=== PATIENT | male | born 1980 | race African-American/Black ===

== ENCOUNTER 2017-09-30 11:07 | Emergency (ER) | payer SELFPAY ==
[~2017-09-30] VITALS: Ht 190.5 cm; Wt 100.0 kg
[2017-09-30 11:10] VITALS: BP 140/71; PULSE 73; RESP 15; TEMP 98.4; O2SAT 98
[2017-09-30] MEDS ORDERED: AMOX500C PO (11:45)
[2017-09-30] MEDS ORDERED: PERI0.126 SWISH-SPIT (11:45)
[2017-09-30] MEDS ORDERED: IBUP1TAB7 PO (11:45)
--- NOTE | 2017-09-30 11:45 | PD ---
HPI Chief Complaint: Oral / Dental Pain or Problem Time Seen by Provider: 11:43 Travel History International Travel<30 days: No Contact w/Intl Traveler<30days: No Traveled to known affect area: No History of Present Illness HPI 36-year-old male presents to emergency Department with complaint of right lower dental pain since yesterday. Says the tooth has been breaking apart for a while now. Denies fever, vomiting. Denies sore throat or difficulty swallowing. Discussed the pain as a throbbing sensation. Rates pain 8/10. Pain is constantly aggravating. No known relieving factors. Has taken ibuprofen. Call to make an appointment with a dentist and they can see him next month. Has no other medical complaints. No known allergies. No other modifying modifying factors or associated signs and symptoms. PFSH Social History Tobacco Use: No Allergies-Medications (Allergen,Severity, Reaction): Coded Allergies: No Known Allergies (Verified Allergy, Unknown, 09/30/17) Reported Meds & Prescriptions Reported Meds & Active Scripts Active Ibuprofen 800 Mg Tab 800 Mg PO Q6HR PRN Peridex Liq (Chlorhexidine Gluconate (Mouth) Liq) 0.12% Soln 15 Ml SWISH-SPIT BID 10 Days Amoxicillin 500 Mg Cap 500 Mg PO BID 10 Days Review of Systems Except as stated in HPI: all other systems reviewed are Neg Physical Exam Narrative GENERAL: Well-nourished, well-developed black male patient, in no acute distress ; afebrile, nontoxic-appearing SKIN: Warm and dry. HEAD: Atraumatic. Normocephalic. No facial edema, erythema, tenderness on palpation. No lymphadenopathy. EYES: Pupils equal and round. No scleral icterus. No injection or drainage. ENT: Mucosa pink and moist. No erythema or exudates. No uvular edema. No uvular , palatal, or tonsillar deviation. Airway patent. EARS: Bilateral pinnae and external canals appear within normal limits. Bilateral tympanic membranes without erythema, dullness or perforation. MOUTH: Mucous membranes moist, no lesions, tongue and gums appear normal. Right lower first molar with tenderness on palpation; large dental cavity and decay. Surrounding gingiva is without erythema, edema, drainage. No obvious abscess noted. NECK: Trachea midline. No lymphadenopathy. CARDIOVASCULAR: Regular rate. RESPIRATORY: No accessory muscle use. GASTROINTESTINAL: Flat. MUSCULOSKELETAL: No obvious deformities. No clubbing. No cyanosis. No edema. NEUROLOGICAL: Awake and alert. Oriented 3. No obvious cranial nerve deficits. Motor grossly within normal limits. Normal speech. PSYCHIATRIC: Appropriate mood and affect; insight and judgment normal. Data Data Last Documented VS Vital Signs Date Time Temp Pulse Resp B/P (MAP) Pulse Ox O2 Delivery O2 Flow Rate FiO2 09/30/17 11:52 09/30/17 11:10 98.4 73 15 98 Orders Orders Ed Discharge Order (09/30/17 11:48) MDM Medical Decision Making Medical Screen Exam Complete: Yes Emergency Medical Condition: Yes Medical Record Reviewed: Yes Differential Diagnosis Dentalgia, dental cavities, dental abscess, less likely peritonsillar abscess Narrative Course 36-year-old male with dentalgia and large dental cavity to right lower first molar. No facial edema or erythema. Patient is afebrile and nontoxic- appearing. Denies fever, vomiting. Patient has an appointment in 1 month with a dentist. Amoxicillin, Peridex mouth rinse, ibuprofen prescribed for home. Instructed patient to follow up with dentist. Instructed patient to follow up with primary care provider. Patient verbalizes understanding and agreement with treatment plan. Patient is medically cleared and stable for discharge. Discussed reasons to return to the emergency department. Patient agrees with treatment plan. The patients vital signs are stable and the patient is stable for outpatient follow-up and treatment. Patient discharged home, stable and in no acute distress. Diagnosis Primary Impression: Tooth pain Additional Impression: Dental cavities Referrals: [facility] Dentist Primary Care Physician Patient Instructions: Dental Abscess (ED), Dental Caries (ED), General Instructions, Toothache (ED) Departure Forms: Tests/Procedures, Work Release Enter return to work date: Sep 30, 2017 Additional Instructions: Complete full course of antibiotics Ibuprofen or Tylenol as directed and as needed to reduce pain and inflammation Use Peridex as directed for oral hygiene Warm or cool compresses to the affected area Follow-up with dentist Follow-up with primary care provider Return to emergency department immediately with worsening of symptoms Med/Other Pt SpecificInfo: Prescription(s) given Scripts Ibuprofen (Ibuprofen) 800 Mg Tab 800 MG PO Q6HR Y for PAIN, #30 TAB 0 Refills Prov: Candida Calles 09/30/17 Chlorhexidine Gluconate (Mouth) Liq (Peridex Liq) 0.12% Soln 15 ML SWISH-SPIT BID for 10 Days, #300 ML 0 Refills Prov: Candida Calles 09/30/17 Amoxicillin (Amoxicillin) 500 Mg Cap 500 MG PO BID for Infection for 10 Days, #20 CAP 0 Refills Prov: Candida Calles 09/30/17 Disposition: 01 DISCHARGE HOME Condition: Stable Candida Calles Sep 30, 2017 11:45
== END 2017-09-30 11:50 | disposition home or self-care (01) ==
LOC: NEPK 11:07
DX: K02.9 Dental caries, unspecified (principal)
CPT/HCPCS: 99284

== ENCOUNTER 2018-05-21 09:32 | Emergency (ER) | payer SELFPAY ==
[~2018-05-21] VITALS: Ht 182.9 cm; Wt 92.0 kg
[~2018-05-21 09:32] MED LIST: AMOX500C PO; IBUP1TAB7 PO; PERI0.126 SWISH-SPIT
[2018-05-21 09:37] VITALS: BP 119/57; PULSE 83; RESP 19; TEMP 98.3; O2SAT 99
[2018-05-21] MEDS ORDERED: MORPHINE SULFATE 4 MG/ML INJ IV PUSH ONE (09:45)
[2018-05-21] MEDS ORDERED: SODIUM CHLORIDE 0.9% FLUSH 10 ML FLUSH IVF PRN (09:45)
[2018-05-21] MEDS ORDERED: ONDANSETRON ODT 4 MG TAB PO ONE (09:45)
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
[2018-05-21 09:54] VITALS: BP 130/71; PULSE 72; RESP 18; O2SAT 96
[2018-05-21 10:28] LABS: AUTOMATED NEUTROPHIL # 8.7 TH/MM3 (1.8-7.7); BASOPHIL % 0.3 % (0.0-2.0); EOSINOPHIL # 0.1 TH/MM3 (0-0.4); EOSINOPHIL % 0.6 % (0.0-4.0); HEMATOCRIT 44.8 % (39.0-51.0); HEMOGLOBIN 14.6 GM/DL (13.0-17.0); LYMPH % 19.4 % (9.0-44.0); LYMPHOCYTE # 2.5 TH/MM3 (1.0-4.8); MEAN CELL VOLUME 84.6 FL (80.0-100.0); MEAN CORPUSCULAR HEMOGLOBIN 27.7 PG (27.0-34.0); MEAN CORPUSCULAR HGB CONC 32.7 % (32.0-36.0); MEAN PLATELET VOLUME 8.6 FL (7.0-11.0); MONO % 11.3 % (0.0-8.0); MONOCYTE # 1.4 TH/MM3 (0-0.9); NEUT % 68.4 % (16.0-70.0); PLATELET COUNT 242 TH/MM3 (150-450); RED BLOOD COUNT 5.29 MIL/MM3 (4.50-5.90); RED CELL DISTRIBUTION WIDTH 14.6 % (11.6-17.2); WHITE BLOOD COUNT 12.7 TH/MM3 (4.0-11.0)
[2018-05-21 10:42] LABS: BILIRUBIN, URINE NEG (NEG); BLOOD, URINE NEG (NEG); GLUCOSE,URINE NEG (NEG); KETONE, URINE TRACE mg/dL (NEG); MUCUS URINE MANY /lpf (OCC); NITRITE,URINE NEG (NEG); URINE COLOR Amber (YELLW/STRAW); URINE LEUKOCYTE ESTERASE TRACE (NEG)
[2018-05-21 10:49] LABS: BICARBONATE 25.1 MEQ/L (21.0-32.0); BLOOD UREA NITROGEN 7 MG/DL (7-18); CALCIUM 9.1 MG/DL (8.5-10.1); CHLORIDE 106 MEQ/L (98-107); CREATININE 1.16 MG/DL (0.60-1.30); GLOMERULAR FILTRATION RATE 85 ML/MIN (>89); GLUCOSE,RANDOM 80 MG/DL (74-106); SODIUM (NA) 138 MEQ/L (136-145)
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
[2018-05-21] MEDS ORDERED: KETOROLAC TROMETHAMINE 30 MG/ML (IVP) VIAL IV PUSH ONE (11:15)
[2018-05-21] MEDS ORDERED: AZITHROMYCIN 600 MG TAB PO ONE (11:15)
[2018-05-21] MEDS ORDERED: SODIUM CHLOR 0.9% 1000 ML INJ 1,000 ML IV ONE (11:15)
[2018-05-21] MEDS ORDERED: cefTRIAXone INJ 1,000 MG in SODIUM CHLORIDE 0.9% INJ 100 ML IV ONE (11:15)
[2018-05-21] MEDS ORDERED: ZOFR4TAB PO (11:17)
[2018-05-21] MEDS ORDERED: IBUP1TAB7 PO (11:17)
[2018-05-21] MEDS ORDERED: TRAM50TA PO (11:17)
[2018-05-21] MEDS ORDERED: CIPR-9 PO (11:17)
[2018-05-21 12:47] VITALS: RESP 18
[2018-05-21 13:18] VITALS: BP 124/68
== END 2018-05-21 13:19 | disposition home or self-care (01) ==
LOC: NEPD 09:32
DX: S06.0X9A Concussion with loss of consciousness of unspecified duration, initial encounter (principal); S20.219A Contusion of unspecified front wall of thorax, initial encounter; N30.00 Acute cystitis without hematuria; S80.11XA Contusion of right lower leg, initial encounter; S80.811A Abrasion, right lower leg, initial encounter; S80.212A Abrasion, left knee, initial encounter; D72.829 Elevated white blood cell count, unspecified; Y04.2XXA Assault by strike against or bumped into by another person, initial encounter; Z79.899 Other long term (current) drug therapy
CPT/HCPCS: 70450; 71111; 80048; 80307; 81001; 85025; 87086; 96365; 96375; 99285; J0696; J1885; J2270; J7030